=== PATIENT | female | born 1990 ===

== ENCOUNTER 2018-05-09 10:00 | Outpatient (CLI) | payer OTHER ==
[~2018-05-09] VITALS: Ht 167.6 cm; Wt 61.2 kg
== END 2018-05-09 10:15 | disposition home or self-care (01) ==
LOC: OFIC 805 10:00
DX: J01.80 Other acute sinusitis (principal); R09.81 Nasal congestion; H65.01 Acute serous otitis media, right ear

== ENCOUNTER 2018-05-16 11:08 | Outpatient (CLI) | payer OTHER ==
[~2018-05-16] VITALS: Ht 152.4 cm; Wt 61.2 kg
== END 2018-05-16 11:25 | disposition home or self-care (01) ==
LOC: OFIC 805 11:08
DX: R09.81 Nasal congestion (principal); H66.93 Otitis media, unspecified, bilateral; J32.8 Other chronic sinusitis